=== PATIENT | female | born 1955 | race Caucasian/White ===

== ENCOUNTER 2016-10-29 11:58 | Emergency (ER) | payer OTHER ==
--- NOTE | 2016-10-29 12:46 | CPEKG ---
Heart Rate: 63 RR Interval: 952 P-R Interval: 156 QRSD Interval: 102 QT Interval: 440 QTC Interval: 451 P [place]: -15 QRS [place]: -50 T Wave [place]: -25 EKG Severity - ABNORMAL ECG - EKG Impression: SINUS RHYTHM EKG Impression: LEFT ANTERIOR FASCICULAR BLOCK EKG Impression: PROBABLE LEFT VENTRICULAR HYPERTROPHY EKG Impression: NONSPECIFIC T ABNORMALITIES, INFERIOR LEADS Electronically Signed By: Beth Pearson 29-Oct-2016 15:11:20
[2016-10-29 12:55] LABS: % IMMATURE GRANULYOCYTES 0.3 % (0.0-1.1); ABSOLUTE IMMATURE GRANULOCYTES 0.02 10^3/uL (0.00-0.10); ADD DIFF? NO; ADD MORPH? NO; ADD SCAN? NO; ATYPICAL LYMPHOCYTE FLAG 10 (0-99); FRAGMENT RBC FLAG 0 (0-99); HEMOGLOBIN 15.6 g/dL (12.6-16.3); LEFT SHIFT FLG 0 (0-99); LIPEMIA HEMOLYSIS FLAG 90 (0-99); MEAN CELL HEMOGLOBIN 34.1 pg (27.9-34.1); MEAN CELL HEMOGLOBIN CONCENTR. 35.5 g/dL (32.4-36.7); MEAN CELL VOLUME 96.3 fL (81.5-99.8); MEAN PLATELET VOLUME 9.9 fL (8.7-11.7); PLATELET CLUMPS FLAG 40 (0-99); PLATELET COUNT 74 10^3/uL (150-400); RED BLOOD CELL COUNT 4.57 10^6/uL (4.18-5.33)
[2016-10-29 13:04] LABS: ALANINE AMINOTRANSFERASE 65 IU/L (9-52); ALBUMIN 4.1 g/dL (3.5-5.0); ALKALINE PHOSPHATASE 54 IU/L (38-126); ANION GAP 16 mEq/L (8-16); ASPARTATE AMINOTRANSFERASE 62 IU/L (14-46); BILIRUBIN-CONJUGATED 0.3 mg/dL (0.0-0.5); BILIRUBIN-UNCONJUGATED 1.7 mg/dL (0.0-1.1); CALCIUM 9.3 mg/dL (8.5-10.4); CARBON DIOXIDE 21 mEq/l (22-31); CHLORIDE 102 mEq/L (97-110); CREATININE 0.5 mg/dL (0.6-1.0); GLOMERULAR FILTRATION RATE > 60; GLUCOSE 148 mg/dL (70-100); POTASSIUM 4.5 mEq/L (3.5-5.2); SODIUM 139 mEq/L (134-144); TOTAL PROTEIN 7.8 g/dL (6.3-8.2)
[2016-10-29 13:15] LABS: TROPONIN I < 0.012 ng/mL (0-0.034)
[2016-10-29] MEDS ORDERED: ASPIRIN 325 MG TAB PO ONE (13:16)
--- NOTE | 2016-10-29 13:36 | DX ---
Chest, PA Upright and Lateral Views October 29, 2016 at 12:27 p.m. Clinical History: 61-year-old female with upper abdominal pain, diarrhea, and low back pain since night. Comparison Studies: Chest radiography dated October 09, 2009, August 24, 2008, and August 22 8. Findings: The cardiac and mediastinal silhouettes are normal in size. There is no focal infiltrate, a telectasis, pleural effusion, peripheral interstitial edema, or pneumothorax. 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 There is scooter e mild tortuosity of the aorta. There are senescent features of the spine. There are surgical clips i n the upper abdomen. There is no free subdiaphragmatic air. Impression: There is no acute intrathoracic abnormality identified.
--- NOTE | 2016-10-29 14:47 | CPEKG ---
Heart Rate: 67 RR Interval: 896 P-R Interval: 160 QRSD Interval: 98 QT Interval: 448 QTC Interval: 473 P [place]: 4 QRS [place]: -50 T Wave [place]: -5 EKG Severity - ABNORMAL ECG - EKG Impression: SINUS RHYTHM EKG Impression: LEFT ANTERIOR FASCICULAR BLOCK EKG Impression: PROBABLE LVH WITH SECONDARY REPOL ABNRM Electronically Signed By: Beth Pearson 29-Oct-2016 15:11:20
[2016-10-29 15:03] LABS: COLOR YELLOW; LEUKOCYTE ESTERASE,URINE NEGATIVE (NEGATIVE); NITRITE,URINE NEGATIVE (NEGATIVE)
--- NOTE | 2016-10-29 15:07 | EDPHY ---
H & P Stated Complaint: N/V/D for for 1 yr see GI Doc in [place] Time Seen by Provider: 10/29/16 12:25 HPI/ROS: Chief complaint: Abdominal pain History of present illness: This is a 61-year-old female who presents to the emergency department for evaluation of abdominal pain. Patient has chronic abdominal pain. She has associated nausea, vomiting and diarrhea. Again this is chronic. She is followed by Gastroenterology for these problems. However, today she reports worsening of the abdominal pain, it feels different than it usually does. She has had some back pain as well. Nausea has been more intense than usual. She also reports chills. She denies precipitating factors. She denies alleviating factors. She is concerned because she had similar symptoms when she had a myocardial infarction in 2007. She denies fevers or cold symptoms , she denies chest pain, she denies shortness of breath, no pain or swelling in the legs. Review of systems: A 10 point review of systems was obtained and other than described above was negative - Personal History Current Tetanus/Diphtheria Vaccine: Yes Current Tetanus Diphtheria and Acellular Pertussis (TDAP): Yes - Medical/Surgical History Hx Asthma: No Hx Chronic Respiratory Disease: No Hx Diabetes: Yes Hx Cardiac Disease: Yes Hx Renal Disease: No Hx Cirrhosis: No Hx Alcoholism: No Hx HIV/AIDS: No Hx Splenectomy or Spleen Trauma: No Other PMH: [place] 2007, CARDIAC STENTS X2, APPENDECTOMY, CHOLECYSTECTOMY - Social History Smoking Status: Never smoked - Physical Exam Exam: General Appearance: Alert, nontoxic. Eyes: Pupils equal and round no pallor or injection. ENT, Mouth: Mucous membranes moist. Respiratory: There are no retractions, lungs are clear to auscultation. Cardiovascular: Regular rate and rhythm. Gastrointestinal: Abdomen is soft and non tender, no masses, bowel sounds normal. Genitourinary: No CVA tenderness Neurological: Alert. Strength and sensation intact and symmetrical. Skin: Warm and dry, no rashes. Musculoskeletal: Neck is supple non tender. Extremities are symmetrical, full range of motion. Psychiatric: Patient is oriented X 3, there is no agitation. Constitutional: Initial Vital Signs Temperature (C) 36.4 C 10/29/16 12:01 Heart Rate 68 10/29/16 12:01 Respiratory Rate 14 10/29/16 12:01 Blood Pressure 155/94 H 10/29/16 12:01 O2 Sat (%) 95 10/29/16 12:01 O2 Delivery Mode Room Air Allergies/Adverse Reactions: Iodinated Contrast Media - Oral and [Iodinated Contrast Media - IV Dye] Allergy (Verified 02/12/16 05:30) PSEUDOPHED Allergy (Uncoded 10/09/09 21:16) Home Medications: Medication Instructions Recorded Aspirin 81mg 10/09/09 CARVEDILOL 10/09/09 Lisinopril 10/09/09 Plavix 10/09/09 metFORMIN HCL 10/09/09 Ciprofloxacin [Cipro] 500 mg PO BID #20 tab 02/12/16 Hydrocodone/APAP 5/325 [[place] 1 - 2 tab PO Q4H PRN #15 tab 02/12/16 5/325 (*)] Ondansetron Odt [Zofran Odt 4 mg 4 mg PO Q4 PRN #10 tab 02/12/16 (*)] metroNIDAZOLE [Flagyl] 500 mg PO TID #30 tab 02/12/16 Medical Decision Making - Diagnostics Imaging: Chest x-ray unremarkable ED Course/Re-evaluation: Patient is discussed with my secondary supervising physician Dr. Beth Pearson. Patient presents to the emergency department for abdominal pain, low- back pain, nausea and chills. This started 5-6 hours before arriving at the emergency department. Patient is nontoxic. She is afebrile and vital signs are stable. Physical exam is unremarkable including benign serial abdominal exams. Laboratory studies are largely unremarkable. Mild changes in chemistry panel similar changes seen last year. Repeat troponin and EKG greater then 6 hours post the onset of symptoms remain unremarkable. This time my suspicion for serious underlying pathology is low. Patient be discharged home. She is asked to follow up with her primary care doctor for continued evaluation and care. Strict return precautions are given. Patient voiced understanding and agreement with plan. Differential Diagnosis: Included but not limited to gastritis, gastroenteritis, biliary tract disease, pancreatitis, colitis, urinary tract disease, myocardial infarction, pulmonary infections - Data Points Laboratory Results: Laboratory Results 10/29/16 12:45 10/29/16 12:45 10/29/16 10/29/16 10/29/16 15:50 14:55 14:50 WBC RBC Hgb Hct MCV MCH MCHC RDW Plt Count MPV Neut % (Auto) Lymph % (Auto) [place] % (Auto) Eos % (Auto) Baso % (Auto) Nucleat RBC Rel Count Absolute Neuts (auto) Absolute Lymphs (auto) Absolute Monos (auto) Absolute Eos (auto) Absolute Basos (auto) Absolute Nucleated RBC Immature Gran % Immature Gran # Sodium Potassium Chloride Carbon Dioxide Anion Gap BUN Creatinine Estimated GFR Glucose Calcium Total Bilirubin Conjugated Bilirubin Unconjugated Bilirubin AST ALT Alkaline Phosphatase Troponin I < 0.012 ng/mL (0-0.034) Total Protein Albumin Lipase Urine Color YELLOW Urine Appearance CLEAR Urine pH 5.0 (5.0-7.5) Ur Specific [place] 1.010 (1.002-1.030) Urine Protein NEGATIVE (NEGATIVE) Urine Ketones NEGATIVE (NEGATIVE) Urine Blood NEGATIVE (NEGATIVE) Urine Nitrate NEGATIVE (NEGATIVE) Urine Bilirubin NEGATIVE (NEGATIVE) Urine Urobilinogen NEGATIVE EU (0.2-1.0) Ur Leukocyte Esterase NEGATIVE (NEGATIVE) Ur Culture Indicated? NOT INDICATED (NI) Urine Glucose NEGATIVE (NEGATIVE) Influenza Typ A,B (DFA) NEGATIVE FOR FLU (NEGATIVE) 10/29/16 12:45 WBC 6.37 10^3/uL (3.80-9.50) RBC 4.57 10^6/uL (4.18-5.33) Hgb 15.6 g/dL (12.6-16.3) Hct 44.0 % (38.0-47.0) MCV 96.3 fL (81.5-99.8) MCH 34.1 pg (27.9-34.1) MCHC 35.5 g/dL (32.4-36.7) RDW 12.0 % (11.5-15.2) Plt Count 74 L 10^3/uL (150-400) MPV 9.9 fL (8.7-11.7) Neut % (Auto) 63.9 % (39.3-74.2) Lymph % (Auto) 27.8 % (15.0-45.0) [place] % (Auto) 6.6 % (4.5-13.0) Eos % (Auto) 0.9 % (0.6-7.6) Baso % (Auto) 0.5 % (0.3-1.7) Nucleat RBC Rel Count 0.0 % (0.0-0.2) Absolute Neuts (auto) 4.07 10^3/uL (1.70-6.50) Absolute Lymphs (auto) 1.77 10^3/uL (1.00-3.00) Absolute Monos (auto) 0.42 10^3/uL (0.30-0.80) Absolute Eos (auto) 0.06 10^3/uL (0.03-0.40) Absolute Basos (auto) 0.03 10^3/uL (0.02-0.10) Absolute Nucleated RBC 0.00 10^3/uL (0-0.01) Immature Gran % 0.3 % (0.0-1.1) Immature Gran # 0.02 10^3/uL (0.00-0.10) Sodium 139 mEq/L (134-144) Potassium 4.5 mEq/L (3.5-5.2) Chloride 102 mEq/L (97-110) Carbon Dioxide 21 L mEq/l (22-31) Anion Gap 16 mEq/L (8-16) BUN 13 mg/dL (7-23) Creatinine 0.5 L mg/dL (0.6-1.0) Estimated GFR > 60 Glucose 148 H mg/dL (70-100) Calcium 9.3 mg/dL (8.5-10.4) Total Bilirubin 2.0 H mg/dL (0.1-1.4) Conjugated Bilirubin 0.3 mg/dL (0.0-0.5) Unconjugated Bilirubin 1.7 H mg/dL (0.0-1.1) AST 62 H IU/L (14-46) ALT 65 H IU/L (9-52) Alkaline Phosphatase 54 IU/L (38-126) Troponin I < 0.012 ng/mL (0-0.034) Total Protein 7.8 g/dL (6.3-8.2) Albumin 4.1 g/dL (3.5-5.0) Lipase 130.0 IU/L (23-300) Urine Color Urine Appearance Urine pH Ur Specific [place] Urine Protein Urine Ketones Urine Blood Urine Nitrate Urine Bilirubin Urine Urobilinogen Ur Leukocyte Esterase Ur Culture Indicated? Urine Glucose Influenza Typ A,B (DFA) Medications Given: Discontinued Medications Aspirin (Aspirin) 325 mg PO EDNOW ONE Stop: 10/29/16 13:17 Last Admin: 10/29/16 13:50 Dose: 325 mg Departure - Departure Disposition: Home, Routine, Self-Care Clinical Impression: Abdominal pain Condition: Good Instructions: Abdominal Pain (ED) Additional Instructions: Follow-up with your primary care doctor on Sunday for recheck without fail If symptoms worsen or new symptoms develop return to the emergency department for recheck Referrals: Andrey Naylor DO [Primary Care Provider] - As per Instructions
[2016-10-29 15:56] VITALS: BP 156/96; PULSE 79; RESP 18; TEMP 98.1; O2SAT 92
== END 2016-10-29 15:56 | disposition home or self-care (01) ==
DX: R10.9 Unspecified abdominal pain (principal); E11.9 Type 2 diabetes mellitus without complications; I25.2 Old myocardial infarction; Z79.01 Long term (current) use of anticoagulants; Z90.49 Acquired absence of other specified parts of digestive tract